=== PATIENT | female | born 1975 | race Two or more races ===

== ENCOUNTER 2024-12-24 16:16 | Emergency (ER) | payer OTHER ==
[~2024-12-24] VITALS: Ht 154.9 cm; Wt 56.7 kg
[2024-12-24] MEDS ORDERED: SERTRALINE20 MG/1 ML (17:31)
[2024-12-24] MEDS ORDERED: ATORVASTATIN CA10 MG (17:31)
[2024-12-24] MEDS ORDERED: HUMALOG100 UNIT/2 SQ (17:32)
[2024-12-24] MEDS ORDERED: DEXAMETHASONE SODIUM PHOSPHATE 4 MG/ML VIAL IM ONE (17:45)
[2024-12-24] MEDS ORDERED: CEFTRIAXONE SODIUM 1,000 MG VIAL IM ONE (17:45)
[2024-12-24] MEDS ORDERED: LIDOCAINE HCL 1%/EPINEPHRINE 10 ML VIAL IJ ONE (17:45)
[2024-12-24] MEDS ORDERED: TETANUS & DIPHTHERIA TOX,ADULT 0.5 ML VIAL IM ONE (17:45)
[2024-12-24] MEDS ORDERED: LIDOCAINE HCL 1% 10ML VIAL ONE (17:49)
[2024-12-24] MEDS ORDERED: DEXAMETHASONE SODIUM PHOSPHATE 4 MG/ML VIAL ONE (17:49)
[2024-12-24] MEDS ORDERED: CEFTRIAXONE SODIUM 1,000 MG VIAL ONE (17:50)
[2024-12-24] MEDS ORDERED: DIPHTH,PERTUSS(ACELL),TET VAC 0.5 ML SYRINGE IM ONE (17:50)
[2024-12-24] MEDS ORDERED: EPINEPHRINE HCL/PF 1 MG/ML AMPUL ONE (17:56)
[2024-12-24] MEDS ORDERED: ACETAMINOPHEN 325 MG TABLET PO ONE ×2 (18:00→18:02)
[2024-12-24] MEDS ORDERED: CEPHALEXIN500 MG PO (20:09)
[2024-12-24] MEDS ORDERED: DOLOGEN 325-11 EACH PO (20:09)
[2024-12-24] MEDS ORDERED: DEXAMETHASONE4 MG PO (20:09)
== END 2024-12-24 20:48 | disposition home or self-care (01) ==
LOC: ER 16:17
DX: S81.822A Laceration with foreign body, left lower leg, initial encounter (principal); W45.8XXA Other foreign body or object entering through skin, initial encounter; Y93.89 Activity, other specified; Y92.89 Other specified places as the place of occurrence of the external cause; F32.89 Other specified depressive episodes; E11.9 Type 2 diabetes mellitus without complications; Z79.4 Long term (current) use of insulin
CPT/HCPCS: 12002; 90471; 90714; J1670

== ENCOUNTER 2025-01-03 08:26 | Emergency (ER) | payer OTHER ==
[~2025-01-03] VITALS: Ht 154.9 cm; Wt 59.0 kg
[~2025-01-03 08:26] MED LIST: ATORVASTATIN CA10 MG; CEPHALEXIN500 MG PO; DEXAMETHASONE4 MG PO; DOLOGEN 325-11 EACH PO; HUMALOG100 UNIT/2 SQ; SERTRALINE20 MG/1 ML
[2025-01-03 08:32] VITALS: BP 127/78; O2SAT 98
[2025-01-03] MEDS ORDERED: LEVOTHYROXINE25 MC1 PO (08:36)
[2025-01-03] MEDS ORDERED: HUMALOG100 UNIT/1 (08:37)
== END 2025-01-03 09:26 | disposition home or self-care (01) ==
LOC: ER 08:26
DX: Z48.02 Encounter for removal of sutures (principal); E11.9 Type 2 diabetes mellitus without complications